=== PATIENT | female | born 1995 | race Two or more races ===

== ENCOUNTER 2017-07-29 01:29 | Emergency (ER) | payer OTHER ==
[~2017-07-29] VITALS: Ht 152.4 cm; Wt 66.7 kg
[~2017-07-29 01:29] MED LIST: DOCU-131 PO; FERR325T23 PO; IBUP-1223 PO; OXYC-302 PO
[2017-07-29 01:31] VITALS: BP 117/79
== END 2017-07-29 02:34 | disposition home or self-care (01) ==
LOC: ED 02:14
DX: H61.22 Impacted cerumen, left ear (principal); J03.00 Acute streptococcal tonsillitis, unspecified; Z91.040 Latex allergy status
CPT/HCPCS: 69210; 99284

== ENCOUNTER 2018-06-04 16:35 | Emergency (ER) | payer SELFPAY ==
[~2018-06-04] VITALS: Ht 152.4 cm; Wt 67.1 kg
[2018-06-04 16:47] VITALS: BP 108/77
[2018-06-04] MEDS ORDERED: DEXAMETHASONE 4 MG TABLET PO STA (17:21)
[2018-06-04] MEDS ORDERED: CARBAMIDE PEROXIDE EAR DROPS 6.5%, 15ML EACH EAR STA (17:21)
[2018-06-04] MEDS ORDERED: IBUPROFEN 800 MG TABLET PO STA (17:21)
[2018-06-04] MEDS ORDERED: DEXAMETHASONE 4 MG TABLET ONE (17:26)
[2018-06-04] MEDS ORDERED: IBUPROFEN 200 MG TABLET ONE (17:26)
[2018-06-04] MEDS ORDERED: CARBAMIDE PEROXIDE EAR DROPS 6.5%, 15ML ONE (17:26)
== END 2018-06-04 17:52 | disposition home or self-care (01) ==
LOC: ED 17:51
DX: J02.8 Acute pharyngitis due to other specified organisms (principal); B97.89 Other viral agents as the cause of diseases classified elsewhere; H61.23 Impacted cerumen, bilateral; H10.89 Other conjunctivitis; J20.8 Acute bronchitis due to other specified organisms
CPT/HCPCS: 99283

== ENCOUNTER 2019-08-06 23:38 | Emergency (ER) | payer SELFPAY ==
[~2019-08-06] VITALS: Ht 152.4 cm; Wt 68.6 kg
[2019-08-06 23:43] VITALS: BP 121/83
--- NOTE | 2019-08-07 01:12 | NUR ---
pt called to room from lobby
--- NOTE | 2019-08-07 03:01 | NUR ---
PT D/C WITH D/C SUMMARY. ALL QUESTIONS ANSWERED. PT DENIES ANY OTHER NEEDS PERTAINING TO THIS VISIT. PT AMBULATES TO REGISTRATION DESK WITH STEADY GAIT.
== END 2019-08-07 03:03 | disposition home or self-care (01) ==
LOC: ED 08-07 03:02
DX: R05 Cough (principal)
CPT/HCPCS: 71046; 99283

== ENCOUNTER 2020-07-13 20:56 | Emergency (ER) | payer SELFPAY ==
[~2020-07-13] VITALS: Ht 152.4 cm; Wt 74.0 kg
[~2020-07-13 20:56] MED LIST changes: -OXYC-302 PO; +OXYC1TAB14 PO
[2020-07-13] MEDS ORDERED: ACETAMINOPHEN 500 MG TABLET PO ONE (21:30)
[2020-07-13] MEDS ORDERED: ACETAMINOPHEN 500 MG TABLET ONE (21:38)
[2020-07-13 22:23] LABS: BASOPHILS % (AUTO) 1 % (0-1); EOSINOPHILS % (AUTO) 1 % (1-7); LYMPHOCYTES % (AUTO) 27 % (22-44); MEAN CORPUSCULAR HGB CONC 33.7 g/dL (32.4-35.8); MEAN PLATELET VOLUME 7.7 fL (7.4-10.4); MONOCYTES % (AUTO) 7 % (2-9); NEUTROPHILS % (AUTO) 64 % (42-75); PLATELET COUNT 263 x10^3/uL (130-400); RED BLOOD COUNT 4.54 x10^6/uL (3.82-5.3); RED CELL DISTRIBUTION WIDTH 15.4 % (9.6-15.2)
[2020-07-13 22:25] LABS: MD NO
[2020-07-13 22:33] LABS: ALANINE AMINOTRANSFERASE 80 U/L (12-78); ALBUMIN 3.3 g/dL (3.4-5.0); ANION GAP 4 mmol/L (5-15); CALCIUM 8.6 mg/dL (8.5-10.1); CHLORIDE 107 mmol/L (98-107)
[2020-07-13 22:50] LABS: ALKALINE PHOSPHATASE 110 U/L (45-117); BILIRUBIN,TOTAL 0.2 mg/dL (0.2-1.0); CREATININE 0.58 mg/dL (0.55-1.02); TOTAL PROTEIN 8.3 g/dL (6.4-8.2)
--- NOTE | 2020-07-13 22:58 | NUR ---
pt resting in bed with family at pt side, pt has unlabored equal breaths. pt a/o x4. pt mediated per mar. pt on monitor with vss. pt has no current wants or needs at this time.
[2020-07-13 23:34] VITALS: BP 123/76
== END 2020-07-13 23:35 | disposition home or self-care (01) ==
LOC: ED 22:56
DX: O99.611 Diseases of the digestive system complicating pregnancy, first trimester (principal); O21.0 Mild hyperemesis gravidarum; R10.2 Pelvic and perineal pain; Z3A.09 9 weeks gestation of pregnancy
CPT/HCPCS: 36415; 76700; 76801; 80053; 83690; 84702; 85025; 99285